=== PATIENT | female | born 1990 | race Two or more races ===

== ENCOUNTER 2017-07-31 12:13 | Emergency (ER) | payer BC, OTHER ==
[~2017-07-31] VITALS: Ht 160 cm; Wt 63.0 kg
[2017-07-31 12:16] VITALS: BP 138/93
== END 2017-07-31 12:49 | disposition home or self-care (01) ==
LOC: ER 12:13
DX: J22 Unspecified acute lower respiratory infection (principal); J32.0 Chronic maxillary sinusitis; F17.210 Nicotine dependence, cigarettes, uncomplicated
CPT/HCPCS: 99281; 99406